=== PATIENT | male | born 1970 | race Caucasian/White ===

== ENCOUNTER → 2017-03-22 | Day surgery (SDC) | payer OTHER ==
[~2017-03-22] VITALS: Ht 175.3 cm; Wt 84.9 kg
== END | disposition home or self-care (01) ==
LOC: FAS 07:00
DX: M23.221 Derangement of posterior horn of medial meniscus due to old tear or injury, right knee (principal); M25.861 Other specified joint disorders, right knee; M79.4 Hypertrophy of (infrapatellar) fat pad; M17.11 Unilateral primary osteoarthritis, right knee; I10 Essential (primary) hypertension; K21.9 Gastro-esophageal reflux disease without esophagitis; Z98.890 Other specified postprocedural states; Z79.891 Long term (current) use of opiate analgesic; Z79.899 Other long term (current) drug therapy
CPT/HCPCS: J2704; J3010